=== PATIENT | male | born 1965 | race Caucasian/White ===

== ENCOUNTER 2017-04-26 18:20 | Emergency (ER) | payer OTHER ==
[~2017-04-26] VITALS: Ht 175.3 cm; Wt 107.0 kg
[~2017-04-26 18:20] MED LIST: IBUP600T26 PO
[2017-04-26 18:45] VITALS: BP 140/66; PULSE 83; RESP 16; TEMP 98.8; O2SAT 97
[2017-04-26] MEDS ORDERED: METF500T PO ×2 (19:42→19:54)
[2017-04-26] MEDS ORDERED: [UNRECOGNIZED DRUG - CODE] ×2 (19:54→20:06)
--- NOTE | 2017-04-26 19:54 | PD ---
HPI Chief Complaint: Medication Refill Request Time Seen by Provider: 20:05 Travel History International Travel<30 days: No Contact w/Intl Traveler<30days: No Traveled to known affect area: No History of Present Illness HPI 52-year-old male here for a refill of his metformin and glucometer. He says he was due to fly and his medication and glucometer were lost in the luggage. He says he last took metformin 3 days ago. He denies fevers, chills, chest pain, shortness of breath. Says he has been a little more thirsty but admits to eating a little too much sugar. He has no other concerns or complaints today. PFSH Past Medical History Diabetes: Yes (type 2) Patient Takes Glucophage: No Tetanus Vaccination: < 5 Years Influenza Vaccination: No Social History Alcohol Use: Yes (occassional ) Tobacco Use: Yes ("10 a day") Substance Use: No Allergies-Medications (Allergen,Severity, Reaction): Coded Allergies: No Known Allergies (Unverified , 04/26/17) Reported Meds & Prescriptions Reported Meds & Active Scripts Active Trueresult Blood Glucose System (Device) 1 Kit Kit Kit .ROUTE DIRECTED Metformin (Metformin HCl) 500 Mg Tab 500 Mg PO BIDPC Reported Metformin (Metformin HCl) 500 Mg Tab 500 Mg PO BIDPC Review of Systems Except as stated in HPI: all other systems reviewed are Neg Physical Exam Narrative GENERAL: Well-nourished, well-developed patient. SKIN: Focused skin assessment warm/dry. HEAD: Normocephalic. Atraumatic EYES: No scleral icterus. No injection or drainage. CARDIOVASCULAR: Regular rate and rhythm without murmurs, gallops, or rubs. RESPIRATORY: Breath sounds equal bilaterally. No accessory muscle use. MUSCULOSKELETAL: No cyanosis, or edema. BACK: Nontender without obvious deformity. No CVA tenderness. Data Data Last Documented VS Vital Signs Date Time Temp Pulse Resp B/P (MAP) Pulse Ox O2 Delivery O2 Flow Rate FiO2 04/26/17 18:45 98.8 83 16 140/66 (90) 97 MDM Medical Decision Making Medical Screen Exam Complete: Yes Emergency Medical Condition: Yes Differential Diagnosis Uncontrolled diabetes mellitus versus medication changes versus noncompliance versus medication refill Narrative Course 52-year-old male here for medication refill Denies any other complaints and would like to go home. I strongly advised him to follow up with his primary care physician. Diagnosis Primary Impression: Encounter for medication refill Referrals: Primary Care Physician Additional Instructions: Take medications as prescribed. Check blood sugar as prescribed by your primary care physician. Follow-up with her primary care physician within 2-3 days. If you have Scripts Trueresult Blood Glucose System (Trueresult Blood Glucose System) 1 Kit Kit KIT .ROUTE DIRECTED for Blood Sugar Management, #1 Prov: Kacie Keith MD 04/26/17 Metformin (Metformin) 500 Mg Tab 500 MG PO BIDPC for Blood Sugar Management, #60 TAB 0 Refills Prov: Kiara Canada 04/26/17 Disposition: 01 DISCHARGE HOME Condition: Stable Kiara Canada Apr 26, 2017 19:54
== END 2017-04-26 20:23 | disposition home or self-care (01) ==
LOC: PHED 18:20 → PHEFT 20:23
DX: Z76.0 Encounter for issue of repeat prescription (principal); E11.9 Type 2 diabetes mellitus without complications; F17.210 Nicotine dependence, cigarettes, uncomplicated; Z79.84 Long term (current) use of oral hypoglycemic drugs
CPT/HCPCS: 99281

== ENCOUNTER 2017-09-20 03:50 | Emergency (ER) | payer SELFPAY ==
[~2017-09-20] VITALS: Ht 175.3 cm; Wt 102.0 kg
[~2017-09-20 03:50] MED LIST changes: -IBUP600T26 PO; +METF500T PO; +[UNRECOGNIZED DRUG - CODE]
[2017-09-20 03:52] VITALS: BP 150/79; PULSE 85; RESP 18; TEMP 97.8; O2SAT 94
[2017-09-20] MEDS ORDERED: SODIUM CHLORIDE 0.9% FLUSH 10 ML FLUSH IVF PRN (04:00)
[2017-09-20] MEDS ORDERED: RESP: ALBUTEROL 2.5 MG/IPRATROPIUM 0.5 MG NEB (SCH) NEB ONE ×2 (04:00→05:15)
[2017-09-20] MEDS ORDERED: ASPIRIN 325 MG TAB PO ONE (04:00)
[2017-09-20] MEDS ORDERED: NITROGLYCERIN 2% OINT 1 GM PACKET TOP ONE (04:00)
[2017-09-20] MEDS ORDERED: methylPREDNISolone SOD SUCC 125 MG/2 ML VIAL IV PUSH ONE (04:00)
[2017-09-20 04:04] VITALS: RESP 22; O2SAT 97
--- NOTE | 2017-09-20 04:12 | PD ---
HPI . Chest pain Chief Complaint: Chest Pain Time Seen by Provider: 03:58 Travel History International Travel<30 days: No Contact w/Intl Traveler<30days: No Traveled to known affect area: No History of Present Illness HPI 52-year-old male history of asthma, recently quit smoking 2 months ago, complains of having recent cough possible upper respiratory infection/bronchitis , notes left-sided mid upper chest chest pain that is sharp in nature worse with deep breath, worse with patient coughing. Patient currently denies production of cough or fever. Denies leg swelling leg pain, states he could not sleep secondary to shortness of breath and wheezing this evening. Patient denies orthopnea, denies leg edema. Patient also denies leg pain recent sedentary or confining travel. PFSH Past Medical History Narrative Medical Past medical history reviewed Diabetes: Yes (type 2) Patient Takes Glucophage: Yes Social History Alcohol Use: Yes (occassional ) Tobacco Use: No ("10 a day") Substance Use: No Allergies-Medications (Allergen,Severity, Reaction): Coded Allergies: No Known Allergies (Unverified Adverse Reaction, Unknown, 09/20/17) Reported Meds & Prescriptions Reported Meds & Active Scripts Active Trueresult Blood Glucose System (Device) 1 Kit Kit Kit .ROUTE DIRECTED Metformin (Metformin HCl) 500 Mg Tab 500 Mg PO BIDPC Reported Metformin (Metformin HCl) 500 Mg Tab 500 Mg PO BIDPC Narrative Medication Allergies and medications reviewed Review of Systems Except as stated in HPI: all other systems reviewed are Neg General / Constitutional: No: Fever Eyes: No: Visual changes HENT: No: Headaches Cardiovascular: Positive: Chest Pain or Discomfort, No: Palpitations, Irregular Rhythm, Tachycardia, Diaphoresis Respiratory: Positive: Cough, Shortness of Breath, Wheezing, Orthopnea, Pleuritic Pain, No: Sneezing, Hemoptysis, Stridor, Night Sweats Gastrointestinal: No: Abdominal Pain Genitourinary: No: Dysuria Musculoskeletal: No: Pain Skin: No Rash Neurologic: No: Weakness Psychiatric: No: Depression Endocrine: No: Polydipsia Hematologic/Lymphatic: No: Easy Bruising Physical Exam Narrative GENERAL: Awake alert oriented 3 no acute distress SKIN: Warm and dry. Color is normal no diaphoresis cyanosis or pallor HEAD: Atraumatic. Normocephalic. EYES: Pupils equal and round. No scleral icterus. No injection or drainage. ENT: No nasal bleeding or discharge. Mucous membranes pink and moist. NECK: Trachea midline. No JVD. Supple nontender full range of motion CARDIOVASCULAR: Regular rate and rhythm. S1-S2 no murmurs rubs or gallops RESPIRATORY: Bilateral wheezes, slight prolonged expiratory phase, decreased lung sounds at bases, rales at bases.. GASTROINTESTINAL: Abdomen soft, non-tender, nondistended. Hepatic and splenic margins not palpable. MUSCULOSKELETAL: Extremities without clubbing, cyanosis, or edema. No obvious deformities. NEUROLOGICAL: Awake and alert. No obvious cranial nerve deficits. Motor grossly within normal limits. Five out of 5 muscle strength in the arms and legs. Normal speech. PSYCHIATRIC: Appropriate mood and affect; insight and judgment normal. Data Data Last Documented VS Vital Signs Date Time Temp Pulse Resp B/P (MAP) Pulse Ox O2 Delivery O2 Flow Rate FiO2 09/20/17 04:27 97 Nasal Cannula 2.00 09/20/17 04:04 22 09/20/17 03:52 97.8 85 Orders Orders Electrocardiogram (09/20/17 04:00) B-Type Natriuretic Peptide (09/20/17 04:00) Ckmb (Isoenzyme) Profile (09/20/17 04:00) Complete Blood Count With Diff (09/20/17 04:00) Comprehensive Metabolic Panel (09/20/17 04:00) D-Dimer (09/20/17 04:00) Magnesium (Mg) (09/20/17 04:00) Prothrombin Time / Inr (Pt) (09/20/17 04:00) Act Partial Throm Time (Ptt) (09/20/17 04:00) Troponin I (09/20/17 04:00) Ecg Monitoring (09/20/17 04:00) Bilateral Bp Monitoring (09/20/17 04:00) Iv Access Insert/Monitor (09/20/17 04:00) Oximetry (09/20/17 04:00) Oxygen Administration (09/20/17 04:00) Aspirin (Aspirin) (09/20/17 04:00) Nitroglycerin 2% Oint (Nitroglycerin 2% (09/20/17 04:00) Sodium Chloride 0.9% Flush (Ns Flush) (09/20/17 04:00) Chest, Pa & Lat (09/20/17 04:00) Albuterol-Ipratropium Neb (Duoneb Neb) (09/20/17 04:00) Methylprednisolone So Succ Inj (Solumedr (09/20/17 04:00) CKMB (09/20/17 04:00) CKMB% (09/20/17 04:00) Metformin (Glucophage) (09/20/17 05:15) Albuterol-Ipratropium Neb (Duoneb Neb) (09/20/17 05:15) Labs Laboratory Tests Test 09/20/17 04:00 White Blood Count 10.8 TH/MM3 Red Blood Count 4.82 MIL/MM3 Hemoglobin 14.1 GM/DL Hematocrit 40.4 % Mean Corpuscular Volume 83.8 FL Mean Corpuscular Hemoglobin 29.2 PG Mean Corpuscular Hemoglobin Concent 34.9 % Red Cell Distribution Width 13.3 % Platelet Count 237 TH/MM3 Mean Platelet Volume 8.4 FL Neutrophils (%) (Auto) 67.5 % Lymphocytes (%) (Auto) 20.1 % Monocytes (%) (Auto) 6.0 % Eosinophils (%) (Auto) 5.8 % Basophils (%) (Auto) 0.6 % Neutrophils # (Auto) 7.3 TH/MM3 Lymphocytes # (Auto) 2.2 TH/MM3 Monocytes # (Auto) 0.7 TH/MM3 Eosinophils # (Auto) 0.6 TH/MM3 Basophils # (Auto) 0.1 TH/MM3 CBC Comment DIFF FINAL Differential Comment Prothrombin Time 10.0 SEC Prothromb Time International Ratio 1.0 RATIO Activated Partial Thromboplast Time 24.6 SEC D-Dimer Quantitative (PE/DVT) 0.22 MG/L FEU Blood Urea Nitrogen 15 MG/DL Creatinine 1.05 MG/DL Random Glucose 294 MG/DL Total Protein 7.4 GM/DL Albumin 3.5 GM/DL Calcium Level 8.2 MG/DL Magnesium Level 1.8 MG/DL Alkaline Phosphatase 84 U/L Aspartate Amino Transf (AST/SGOT) 34 U/L Alanine Aminotransferase (ALT/SGPT) 31 U/L Total Bilirubin 0.4 MG/DL Sodium Level 135 MEQ/L Potassium Level 4.9 MEQ/L Chloride Level 104 MEQ/L Carbon Dioxide Level 25.3 MEQ/L Anion Gap 6 MEQ/L Estimat Glomerular Filtration Rate 75 ML/MIN Total Creatine Kinase 465 U/L Creatine Kinase MB 3.7 NG/ML Creatine Kinase MB % 0.8 % Troponin I LESS THAN 0.02 NG/ML B-Type Natriuretic Peptide 13 PG/ML MDM Medical Decision Making Medical Screen Exam Complete: Yes Emergency Medical Condition: Yes Medical Record Reviewed: Yes Differential Diagnosis Asthma exacerbation, acute bronchitis, pleuritic chest pain, atypical chest pain Narrative Course EKG normal sinus rhythm 81 bpm, slight J-point elevation throughout precordium, otherwise no ischemic changes. Chest x-ray no acute infiltrate Laboratory exam is reviewed, no significant abnormalities Patient feels greatly improved after albuterol Atrovent nebulized treatment, steroids. Patient's pleuritic chest pain has resolved. Diagnosis Primary Impression: Chest pain Qualified Codes: R07.1 - Chest pain on breathing Additional Impression: Acute bronchitis Qualified Codes: J20.9 - Acute bronchitis, unspecified Patient Instructions: Acute Bronchitis (DC), General Instructions Additional Instructions: Albuterol metered-dose inhaler 2 puffs every 4-6 hours as needed for shortness of breath/wheezing. Medrol Dosepak as prescribed tapering steroids. Metformin 500 mg twice daily as per usual regimen. Monitor sugar/carbohydrate intake, your blood sugar may increase with use of steroids and during periods of illness. Decrease your carbohydrate intake accordingly. Ibuprofen 400 mg every 6-8 hours as needed for discomfort. Follow-up with your doctor/[facility]. Return for worsening Scripts Albuterol 18 GM Inh (Ventolin Hfa 18 GM Inh) 90 Mcg/Act Aer 2 PUFF INH Q4-6H Y for SHORTNESS OF BREATH, #1 INHALER 0 Refills Prov: Nando Felipe MD 09/20/17 Methylprednisolone Dosepak (Medrol Dosepak) 4 Mg Dspk 4 MG PO DIRECTED, #1 DSPK 0 Refills Per Pharmacist direction Prov: Nando Felipe MD 09/20/17 Metformin (Metformin) 500 Mg Tab 500 MG PO BIDPC for Blood Sugar Management, #60 TAB 0 Refills Prov: Nando Felipe MD 09/20/17 Disposition: 01 DISCHARGE HOME Condition: Stable Nando Felipe MD Sep 20, 2017 04:12
[2017-09-20 04:16] LABS: AUTOMATED NEUTROPHIL # 7.3 TH/MM3 (1.8-7.7); BASOPHIL # 0.1 TH/MM3 (0-0.2); BASOPHIL % 0.6 % (0.0-2.0); EOSINOPHIL # 0.6 TH/MM3 (0-0.4); EOSINOPHIL % 5.8 % (0.0-4.0); HEMATOCRIT 40.4 % (39.0-51.0); HEMOGLOBIN 14.1 GM/DL (13.0-17.0); LYMPH % 20.1 % (9.0-44.0); LYMPHOCYTE # 2.2 TH/MM3 (1.0-4.8); MEAN CELL VOLUME 83.8 FL (80.0-100.0); MEAN CORPUSCULAR HEMOGLOBIN 29.2 PG (27.0-34.0); MEAN CORPUSCULAR HGB CONC 34.9 % (32.0-36.0); MEAN PLATELET VOLUME 8.4 FL (7.0-11.0); MONOCYTE # 0.7 TH/MM3 (0-0.9); NEUT % 67.5 % (16.0-70.0); PLATELET COUNT 237 TH/MM3 (150-450); RED BLOOD COUNT 4.82 MIL/MM3 (4.50-5.90); RED CELL DISTRIBUTION WIDTH 13.3 % (11.6-17.2); WHITE BLOOD COUNT 10.8 TH/MM3 (4.0-11.0)
[2017-09-20 04:27] VITALS: O2SAT 97
[2017-09-20 04:39] LABS: ALBUMIN 3.5 GM/DL (3.4-5.0); ALKALINE PHOSPHATASE 84 U/L (45-117); ALT (GPT) 31 U/L (12-78); AST (GOT) 34 U/L (15-37); BICARBONATE 25.3 MEQ/L (21.0-32.0); BLOOD UREA NITROGEN 15 MG/DL (7-18); CALCIUM 8.2 MG/DL (8.5-10.1); CHLORIDE 104 MEQ/L (98-107); CREATININE 1.05 MG/DL (0.60-1.30); GLOMERULAR FILTRATION RATE 75 ML/MIN (>89); GLUCOSE,RANDOM 294 MG/DL (74-106); MAGNESIUM 1.8 MG/DL (1.5-2.5); SODIUM (NA) 135 MEQ/L (136-145); TOTAL BILIRUBIN ADULT 0.4 MG/DL (0.2-1.0); TOTAL PROTEIN 7.4 GM/DL (6.4-8.2); TROPONIN I LESS THAN 0.02 NG/ML (0.02-0.05)
[2017-09-20 04:47] LABS: D-DIMER 0.22 MG/L FEU (0.00-0.50)
[2017-09-20] MEDS ORDERED: metFORMIN HCL 500 MG TAB PO ONE (05:15)
[2017-09-20] MEDS ORDERED: METF500T PO (05:19)
[2017-09-20] MEDS ORDERED: MEDR4PAK PO (05:19)
[2017-09-20] MEDS ORDERED: VENTAER INH (05:19)
--- NOTE | 2017-09-20 06:07 | RADRPT ---
EXAM DATE/TIME: 09/20/2017 04:39 [facility] COMPARISON: No previous studies available for comparison. INDICATIONS : Left sided chest pain and shortness of breath MEDICAL HISTORY : Diabetes mellitus type II. SURGICAL HISTORY : None. ENCOUNTER: Initial ACUITY: 1 day PAIN SCORE: 7/10 LOCATION: Bilateral chest FINDINGS: PA and lateral views of the chest demonstrate the lungs to be symmetrically aerated without evidence of mass, infiltrate or effusion. The cardiomediastinal contours are unremarkable. Osseous structure s are intact. CONCLUSION: 1. No acute cardiopulmonary disease. Franko Saldivar MD on September 20, 2017 at 6:06 Board Certified Radiologist. This report was verified electronically.
--- NOTE | 2017-09-20 12:25 | EKG ---
Date Performed: 09/20/2017 Time Performed: 04:00:47 PTAGE: 52 years EKG: Sinus rhythm WITH SHORT OH INTERVAL BORDERLINE ECG PREVIOUS TRACING : 09/20/2017 03.59 DOCTOR: Sabas Cervantes Interpretating Date/Time 09/20/2017 12:22:28
== END 2017-09-20 05:56 | disposition home or self-care (01) ==
LOC: NEPC 03:50
DX: R07.1 Chest pain on breathing (principal); J20.9 Acute bronchitis, unspecified; E11.9 Type 2 diabetes mellitus without complications; Z79.84 Long term (current) use of oral hypoglycemic drugs
CPT/HCPCS: 71046; 80053; 82550; 82552; 83735; 83880; 84484; 85025; 85379; 85610; 85730; 93005; 94640; 94664; 96374; 99285; J2930